=== PATIENT | female | born 1995 | race Caucasian/White ===

== ENCOUNTER 2020-07-28 13:57 | Emergency (ER) | payer SELFPAY ==
[2020-07-28] MEDS ORDERED: DEXTROSE 50%-WATER 25 GM/50 ML DISP.SYRIN IV ONE ×2 (14:32→14:33)
[2020-07-28 14:52] LABS: ABSOLUTE LYMPHOCYTES (AUTO) 2.1 10^3/uL (0.5-4.7); ABSOLUTE MONOCYTES (AUTO) 0.8 10^3/uL (0.1-1.4); ABSOLUTE NEUT (AUTO) 6.9 10^3/uL (1.7-8.2); BASOPHILS % (AUTO) 0.4 % (0-2); EOSINOPHILS % (AUTO) 0.5 % (0-6); HEMATOCRIT 33.4 % (36.0-47.0); HEMOGLOBIN 11.6 g/dL (12.0-15.5); LYMPHOCYTES % (AUTO) 21.4 % (13-45); MEAN CORPUSCULAR HEMOGLOBIN 33.4 pg (27.0-33.4); MEAN CORPUSCULAR HGB CONC 34.6 g/dL (32.0-36.0); MEAN CORPUSCULAR VOLUME 97 fl (80-97); MONOCYTES % (AUTO) 7.8 % (3-13); PLATELET COUNT 237 10^3/uL (150-450); RED BLOOD COUNT 3.46 10^6/uL (3.72-5.28); RED CELL DISTRIBUTION WIDTH 14.1 % (11.5-14.0); SEGMENTED NEUTROPHILS % (AUTO) 69.9 % (42-78); TOTAL CELLS COUNTED % (AUTO) 100 %; WHITE BLOOD COUNT 9.8 10^3/uL (4.0-10.5)
--- NOTE | 2020-07-28 14:55 | ER Document Report ---
ED Seizure - General Chief Complaint: Probable Seizure Stated Complaint: SEIZURE Time Seen by Provider: 07/28/20 14:43 Mode of Arrival: Medic Information source: Patient, Relative - jose f Notes: 25-year-old female arrives via EMS after Jose F witnessed a generalized grand mal seizure with bleeding from her right lower lip. Patient was very drowsy and poor historian upon arrival. Patient remembers having some [place] of light that was like a rainbow over both eyes. She had just eaten at the [facility] with her and drink a diet Coke and ate nachos. She is eaten there before with no problem. In fact she has had 2 children before and the past ages 6 years old and 2 years old healthy boys. She is G3, P2 and her OB doctor is Dr. Regalado from [place]. Patient reports for the past week she has had poor appetite and having achy body and acting very tired. She has not gotten a sandhu or influenza test. feels fine and children are doing well. reports the seizure occurred for several minutes and then drowsiness and LOC for around 5 to 10 minutes. Blood sugar was 60 per EMS upon their arrival. EMS gave 150 mL of D10; patient arrived with a 86 blood sugar which within 26 minutes dropped to 61. She was then given D50 by nursing staff in bed #1. Patient was much more alert with a ecchymotic area to her right lower lip but no tongue bites. Patient's history herself is very poor. She knows her name and some of the history but main history is from .FHT 165 at 1435. TRAVEL OUTSIDE OF THE [place] IN LAST 30 DAYS: No - HPI Patient complains to provider of: First seizure Quality of pain: Achy Severity: Mild Pain Level: 1 Can details of seizure be obtained/verified: Yes Episode witnessed (by whom): Yes - - Related Data Allergies/Adverse Reactions: No Known Allergies Allergy (Verified 07/28/20 14:06) Home Medications: Phenergan, Vitamins, Omeprazole Past Medical History - General Information source: Patient, Relative - Social History Smoking Status: Former Smoker Cigarette use (# per day): No Chew tobacco use (# tins/day): No Smoking Education Provided: No Frequency of alcohol use: None Drug Abuse: None Lives with: Family Family History: Reviewed & Not Pertinent Patient has suicidal ideation: No Patient has homicidal ideation: No Review of Systems - Review of Systems Constitutional: See HPI, Weakness EENT: See HPI, Mouth pain Cardiovascular: No symptoms reported Respiratory: No symptoms reported Gastrointestinal: No symptoms reported Genitourinary: No symptoms reported Female Genitourinary: See HPI, Musculoskeletal: No symptoms reported Skin: No symptoms reported Hematologic/Lymphatic: No symptoms reported Neurological/Psychological: See HPI, Confusion, Weakness, Seizure, Lost consciousness Physical Exam - Vital signs Vitals: Temp 97.7 F 07/28/20 14:22 Interpretation: Normal - General General appearance: Appears well, Alert - HEENT Head: Normocephalic, Atraumatic Eyes: Normal Pupils: PERRL Nasal: Normal Mouth/Lips: Normal, Other - Except right lower lip with bruising and right lateral tongue near molars with bite babb Mucous membranes: Normal Pharynx: Normal Neck: Normal - Respiratory Respiratory status: No respiratory distress Chest status: Nontender Breath sounds: Normal Chest palpation: Normal - Cardiovascular Rhythm: Regular Heart sounds: Normal auscultation Murmur: No - Abdominal Inspection: Gravid female Distension: Distended Bowel sounds: Normal Tenderness: Nontender Organomegaly: No organomegaly - Rectal Hemorrhoids: Other - deferred - Genitourinary Bimanuel exam: Other - deferred - Back Back: Normal - Extremities General upper extremity: Normal inspection General lower extremity: Normal inspection - Neurological Neuro grossly intact: Yes Cognition: Confused [place] Coma Scale Eye Opening: Spontaneous [place] Coma Scale Verbal: Confused Cranial nerves: Normal Cerebellar coordination: Normal Motor strength normal: LUE, RUE, LLE, RLE Additional motor 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 - Psychological Associated symptoms: Anxious, Confused - Skin Skin Temperature: Warm Skin Moisture: Dry Course - Vital Signs Vital signs: Temp Pulse Resp BP Pulse Ox 97.7 F 07/28/20 14:22 - Laboratory Result Diagrams: 07/28/20 14:03 07/28/20 14:03 Laboratory results interpreted by me: 07/28/20 07/28/20 07/28/20 14:03 14:03 14:28 RBC 3.46 L Hgb 11.6 L Hct 33.4 L RDW 14.1 H Sodium 136.3 L POC Glucose 61 L Urine Protein Urine Glucose (UA) Urine Ascorbic Acid 07/28/20 07/28/20 15:03 15:21 RBC Hgb Hct RDW Sodium POC Glucose 131 H Urine Protein 30 H Urine Glucose (UA) >=500 H Urine Ascorbic Acid 20 H - Diagnostic Test Radiology reviewed: Reports reviewed Critical Care Note - Critical Care Note Comments: I discussed this case with Dr. Barragan OB doctor and he advises follow-up with himself or with her OB doctor this week. He also advises increase calories and try to take a high-calorie snack before bed. I also advised patient and of the need for high-calorie intake throughout the day and night. Peanut butter ice cream prior to sleep. Discharge - Discharge Clinical Impression: Hypoglycemia, Seizure Qualifiers: Weeks of gestation: 24 weeks Qualified Code(s): Z3A.24 - 24 weeks gestation of Condition: Good Disposition: HOME, SELF-CARE Additional Instructions: Follow-up with OB doctor on Thursday return to ER if symptoms persist or return. Take high calorie meals like peanut butter or ice cream and juices.
[2020-07-28 14:58] LABS: ALBUMIN 3.5 g/dL (3.5-5.0); ALKALINE PHOSPHATASE 48 U/L (38-126); ANION GAP 8 (5-19); ASPARTATE AMINO TRANSFERASE 28 U/L (14-36); BILIRUBIN,DIRECT 0.2 mg/dL (0.0-0.4); BILIRUBIN,TOTAL 0.2 mg/dL (0.2-1.3); BLOOD UREA NITROGEN 8 mg/dL (7-20); CALCIUM 8.4 mg/dL (8.4-10.2); CARBON DIOXIDE 22 mmol/L (22-30); CHLORIDE 106 mmol/L (98-107); GLUCOSE 77 mg/dL (75-110); POTASSIUM 3.7 mmol/L (3.6-5.0); TOTAL PROTEIN 6.4 g/dL (6.3-8.2)
--- NOTE | 2020-07-28 15:03 | RADIOLOGY REPORT (SQ) ---
EXAM DESCRIPTION: CHEST SINGLE VIEW IMAGES COMPLETED DATE/TIME: 07/28/2020 2:55 pm REASON FOR STUDY: seizure COMPARISON: None. NUMBER OF VIEWS: One view. TECHNIQUE: Single frontal radiographic view of the chest acquired. LIMITATIONS: None. FINDINGS: LUNGS AND PLEURA: No opacities, masses or pneumothorax. No pleural effusion. MEDIASTINUM AND HILAR STRUCTURES: No masses. Contour normal. HEART AND VASCULAR STRUCTURES: Heart normal in size. Normal vasculature. BONES: No acute findings. HARDWARE: None in the chest. OTHER: No other significant finding. IMPRESSION: NO SIGNIFICANT RADIOGRAPHIC FINDING IN THE CHEST. TECHNICAL DOCUMENTATION: JOB ID: [id number] 2010 [employer]- All Rights Reserved Reading location - IP/workstation name: [email or web address]
[2020-07-28 15:13] LABS: ALCOHOL < 10 mg/dL (NONE DETECTED)
[2020-07-28] MEDS ORDERED: ACETAMINOPHEN 325 MG TABLET PO ONE (15:21)
[2020-07-28 15:45] LABS: A TYPE INFLUENZA AG NEGATIVE (NEGATIVE); APPEARANCE,URINE CLEAR; B INFLUENZA AG NEGATIVE (NEGATIVE); BILIRUBIN,URINE NEGATIVE (NEGATIVE); COLOR,URINE YELLOW; GLUCOSE, URINE >=500 mg/dL (NEGATIVE); KETONES,URINE NEGATIVE (NEGATIVE); LEUKOCYTE ESTERASE,URINE NEGATIVE (NEGATIVE); NITRITE,URINE NEGATIVE (NEGATIVE); PROTEIN,URINE 30 mg/dL (NEGATIVE); URINE SPECIFIC GRAVITY 1.011; UROBILINOGEN,URINE NEGATIVE mg/dL (<2.0)
--- NOTE | 2020-07-28 16:03 | RADIOLOGY REPORT (SQ) ---
EXAM DESCRIPTION: U/S OB 14+ TRNABD 1GES W/O DOP IMAGES COMPLETED DATE/TIME: 07/28/2020 3:45 pm REASON FOR STUDY: seizure COMPARISON: None. TECHNIQUE: Static and Dynamic grayscale imaging performed of gravid uterus using transabdominal appr oach. Additional selected color Doppler and spectral images recorded. All stored on PACS. LIMITATIONS: None. FINDINGS: FETUSES SEEN:1 EGA: 25 weeks 4 days Calculated using BPD,FL,HC,AC documented on images. No discrepancy with clinica l dates. KEN: 11/06/2020 EFW: 819 grams PERCENTILE: 45th LOLY: 13.6 cm PLACENTA: Anterior PRESENTATION: Breech ANATOMY: HEART RATE: 162 beats per minute. No gross abnormalities. MATERNAL ADNEXA: Maternal ovaries not visualized. CERVICAL LENGTH: 2.7 cm Closed. OTHER: No other significant finding. IMPRESSION: Single live intrauterine gestation with an estimated gestational age of 25 weeks 4 days which is consistent with a menstrual dating. Breech presentation. Normal amniotic fluid index. Trimester of : Second trimester - 13 weeks 1 day to 27 weeks 6 days. TECHNICAL DOCUMENTATION: JOB ID: [id number] 2010 [employer]- All Rights Reserved Reading location - IP/workstation name: [email or web address]
--- NOTE | 2020-07-28 16:27 | RADIOLOGY REPORT (SQ) ---
EXAM DESCRIPTION: CT HEAD WITHOUT IMAGES COMPLETED DATE/TIME: 07/28/2020 4:07 pm REASON FOR STUDY: seizure COMPARISON: None. TECHNIQUE: Axial images acquired through the brain without intravenous contrast. Images reviewed wi th bone, brain and subdural windows. Images stored on PACS. All CT scanners at this facility use dose modulation, iterative reconstruction, and/or weight based d osing when appropriate to reduce radiation dose to as low as reasonably achievable (ALARA). [facility]: Dose Right [facility]: CareDose [facility]: Dose Right [facility]: Teradose 4D [facility]: Extreme DA RADIATION DOSE: CT Rad equipment meets quality standard of care and radiation dose reduction techniq ues were employed. CTDIvol: 53.2 mGy. DLP: 964 mGy-cm. mGy. LIMITATIONS: None. FINDINGS: VENTRICLES: Normal size and contour. CEREBRUM: No masses. No hemorrhage. No midline shift. No evidence for acute infarction. Normal gra y/white matter differentiation. No areas of low density in the white matter. CEREBELLUM: No masses. No hemorrhage. No alteration of density. No evidence for acute infarction. EXTRAAXIAL SPACES: No fluid collections. No masses. ORBITS AND GLOBE: No intra- or extraconal masses. Normal contour of globe without masses. CALVARIUM: No fracture. PARANASAL SINUSES: No fluid or mucosal thickening. SOFT TISSUES: No mass or hematoma. OTHER: No other significant finding. IMPRESSION: NORMAL BRAIN CT WITHOUT CONTRAST. EVIDENCE OF ACUTE STROKE: NO. COMMENT: Quality ID # [id number]: Final reports with documentation of one or more dose reduction techniques (e.g., Automated exposure control, adjustment of the mA and/or kV according to patient size, use of iterative reconstruction technique) TECHNICAL DOCUMENTATION: JOB ID: [id number] 2010 [employer]- All Rights Reserved Reading location - IP/workstation name: [email or web address]
[2020-07-28 16:44] LABS: URINE AMPHETAMINES SCREEN NEGATIVE; URINE BARBITURATES SCREEN NEGATIVE; URINE BENZODIAZEPINES SCREEN NEGATIVE; URINE COCAINE SCREEN NEGATIVE; URINE MARIJUANA (THC) SCREEN NEGATIVE; URINE METHADONE SCREEN NEGATIVE; URINE PHENCYCLIDINE SCREEN NEGATIVE
[2020-07-28 19:07] VITALS: BP 110/63
== END 2020-07-28 19:08 | disposition home or self-care (01) ==
LOC: ER 13:57
DX: O99.352 Diseases of the nervous system complicating pregnancy, second trimester (principal); R56.9 Unspecified convulsions; O26.892 Other specified pregnancy related conditions, second trimester; R53.1 Weakness; R63.0 Anorexia; M79.10 Myalgia, unspecified site; R41.0 Disorientation, unspecified; Z3A.24 24 weeks gestation of pregnancy; Z87.891 Personal history of nicotine dependence; Z79.899 Other long term (current) drug therapy; Z20.828 Contact with and (suspected) exposure to other viral communicable diseases
CPT/HCPCS: 99285; 96374; 36415; 82962; 80307 ×2; 83735; 85025; 83525; 83527; 87635; 80053; 81001; 87804; 71045; 76805; 70450; J3490; C9803